=== PATIENT | female | born 1955 | race African-American/Black ===

== ENCOUNTER 2020-09-17 22:55 | Inpatient (IN) | payer BC ==
[~2020-09-17] VITALS: Ht 182.9 cm; Wt 90.3 kg
[2020-09-17] MEDS ORDERED: SODIUM CHLORIDE 0.9% 1,000 ML IV ONE (23:45)
[2020-09-17 23:54] LABS: BASOPHILS % 0.8 % (0.0-2.0); EOSINOPHILS % 3.8 % (0.0-5.0); HEMATOCRIT. 37.9 % (36.0-48.0); HEMOGLOBIN. 12.7 g/dL (12.0-16.0); LYMPHOCYTES % 35.2 % (20.0-50.0); MEAN CORPUSCULAR HEMOGLOBIN 29.1 pg (28.0-32.0); MEAN CORPUSCULAR VOLUME 86.8 fL (81.0-99.0); MEAN PLATELET VOLUME 8.6 fl (7.4-10.4); MONOCYTES % 6.5 % (2.0-8.0); NEUTROPHILS % 53.7 % (40.0-76.0); PLATELET 312 x1000/uL (130-400); RED BLOOD CELL COUNT 4.36 mill/uL (4.2-5.4); RED CELL DISTRIBUTION WIDTH 14.1 % (11.6-14.6)
[2020-09-18 00:01] LABS: CHLORIDE 109 mEq/L (98-107)
[2020-09-18] MEDS ORDERED: DOCUSATE SODIUM 100MG CAPSULE PO PRN (07:00)
[2020-09-18] MEDS ORDERED: ACETAMINOPHEN 325MG TABLET PO PRN ×2 (07:00)
[2020-09-18] MEDS ORDERED: ONDANSETRON HCL 4MG/2ML INJ IV PRN (07:00)
[2020-09-18] MEDS ORDERED: GUAIFENESIN 200MG/10ML SUGAR FREE UDC PO PRN (07:00)
[2020-09-18] MEDS ORDERED: IPRATROPIUM/ALBUTEROL 0.5-3(2.5)MG/3ML NEB NEB PRN (07:00)
[2020-09-18] MEDS ORDERED: KETOROLAC 15MG/ML VIAL IV PRN (07:00)
[2020-09-18] MEDS ORDERED: MAGNESIUM/ALUMINUM HYDROXIDE/SIMETHICONE 30ML UDC PO PRN (07:00)
[2020-09-18] MEDS ORDERED: CLONIDINE 0.1MG TABLET PO PRN (07:00)
[2020-09-18] MEDS ORDERED: TRAMADOL 50MG TABLET PO PRN (07:00)
[2020-09-18] MEDS ORDERED: POTASSIUM CHLORIDE 20MEQ TABLET SR PO NR (07:13)
[2020-09-18] MEDS ORDERED: NITROGLYCERIN 0.4MG TABLET SL SL PRN (07:45)
[2020-09-18] MEDS ORDERED: ASPIRIN 81MG EC TABLET PO SCH (09:00)
[2020-09-18] MEDS ORDERED: ENOXAPARIN 40MG/0.4ML SYR SUBCUT SCH (09:00)
[2020-09-18] MEDS: FAMOTIDINE 20MG TABLET PO SCH ×2 (09:32→22:21)
[2020-09-18 09:40] LABS: ETHANOL BLOOD < 10 mg/dL
[2020-09-18 09:43] LABS: HDL CHOLESTEROL 102 mg/dL (40-59); LDL CHOLESTEROL 82 mg/dL (5-100); TOTAL IRON BINDING CAPACITY 294 ug/dL (250-450)
[2020-09-18 09:56] LABS: FOLIC ACID (FOLATE) SERUM 11.5 ng/mL (>5.38)
[2020-09-18 11:20] LABS: *BENZODIAZEPINES SCREEN URINE NEGATIVE (NEGATIVE)
[2020-09-18 11:21] LABS: *AMPHETAMINES SCREEN URINE NEGATIVE (NEGATIVE); *BARBITURATES SCREEN URINE NEGATIVE (NEGATIVE); *COCAINE SCREEN URINE NEGATIVE (NEGATIVE); CANNABINOID URINE SCREEN NEGATIVE (NEGATIVE); METHADONE URINE SCREEN NEGATIVE (NEGATIVE); OPIATES URINE SCREEN NEGATIVE (NEGATIVE); PHENCYCLIDINE URINE SCREEN NEGATIVE (NEGATIVE)
[2020-09-18 15:17] LABS: CREATINE KINASE 131 IU/L (26-192)
[2020-09-18 15:19] LABS: CREATINE KINASE MB FRACTION 1.8 ng/mL (0.5-3.6)
[2020-09-18 17:51] VITALS: BP 153/79
[2020-09-18] MEDS ORDERED: METO-385 PO (19:44)
[2020-09-18] MEDS ORDERED: LEVO100C4 (19:46)
[2020-09-18] MEDS ORDERED: ADAL40PE SQ (19:48)
[2020-09-18] MEDS ORDERED: vitamin d (19:49)
[2020-09-18] MEDS ORDERED: ALPR0.5T PO (19:50)
[2020-09-18] MEDS ORDERED: IRBE1TAB43 PO (19:51)
[2020-09-18] MEDS ORDERED: levothyroxine (19:55)
[2020-09-18 20:00] VITALS: BP 107/52
[2020-09-18] MEDS ORDERED: ZOLPIDEM TARTRATE 5MG TABLET PO PRN (21:00)
[2020-09-19] VITALS: BP 157/75
[2020-09-19 00:01] LABS: CREATINE KINASE 124 IU/L (26-192)
[2020-09-19 00:02] LABS: CREATINE KINASE MB FRACTION 1.8 ng/mL (0.5-3.6)
[2020-09-19 04:00] VITALS: BP 124/59
[2020-09-19 07:54] LABS: BASOPHILS % 0.9 % (0.0-2.0); EOSINOPHILS % 5.8 % (0.0-5.0); HEMATOCRIT. 36.1 % (36.0-48.0); HEMOGLOBIN. 11.9 g/dL (12.0-16.0); LYMPHOCYTES % 40.5 % (20.0-50.0); MEAN CORPUSCULAR HEMOGLOBIN 28.5 pg (28.0-32.0); MEAN CORPUSCULAR VOLUME 86.7 fL (81.0-99.0); MEAN PLATELET VOLUME 8.4 fl (7.4-10.4); MONOCYTES % 7.7 % (2.0-8.0); NEUTROPHILS % 45.1 % (40.0-76.0); PLATELET 291 x1000/uL (130-400); RED BLOOD CELL COUNT 4.17 mill/uL (4.2-5.4); RED CELL DISTRIBUTION WIDTH 14.6 % (11.6-14.6)
[2020-09-19 07:56] LABS: CHLORIDE 110 mEq/L (98-107)
[2020-09-19 08:00] VITALS: BP 142/65
[2020-09-19 08:14] LABS: PHOSPHORUS 3.7 mg/dL (2.5-4.9)
[2020-09-19] MEDS ORDERED: LEVOTHYROXINE SODIUM 100MCG TABLET PO SCH (08:15)
[2020-09-19 08:47] VITALS: BP 142/65
== END 2020-09-19 11:10 | disposition home or self-care (01) | DRG 312 ==
LOC: ER 22:55 → 5WST 09-18 04:54 → ENRESERV 09-18 15:55
PROVIDERS: ADMIT Internal Medicine; ATTEND Internal Medicine
DX: R55 Syncope and collapse (principal); E83.51 Hypocalcemia; E87.6 Hypokalemia; I10 Essential (primary) hypertension; Z79.899 Other long term (current) drug therapy; E87.8 Other disorders of electrolyte and fluid balance, not elsewhere classified
CPT/HCPCS: 36415; 71045; 80053; 80061; 80305; 80320; 82550; 82553; 82607; 82746; 83036; 83540; 83550; 83735; 84100; 84439; 84443; 84484; 85025; 93005; 93970; 99285; J1650; J7030; G0480